=== PATIENT | male | born 1995 | race Caucasian/White ===

== ENCOUNTER 2022-08-15 00:41 | Emergency (ER) | payer SELFPAY ==
[2022-08-15 00:51] VITALS: BP 128/62; PULSE 103; RESP 16; TEMP 37.1; O2SAT 96
--- NOTE | 2022-08-15 00:57 | ED.GENADUL_ITS ---
Discharge Plan Disposition Patient Disposition: HOME Condition: Stable Discharge Details Chief Complaint: Orthopedic Clinical Impression: Acute pain of right shoulder Primary Care Provider: [facility] Provider: Camilo Bailey Home Meds and New Rx's Prescriptions: No Action No Known Home Meds Medical Decision Making 27-year-old male with a past medical history of previous right shoulder dislocation x2, presents today for suspected right shoulder dislocation. Patient states that he was walking when he slipped on some wet leaves, landed on his right shoulder, and felt his shoulder pop out. He had a friend drive him to the emergency department and then while he was walking into the ED he felt his shoulder pop and come back into a similar normal place. He denies any numbness or tingling. He did have 6 beers this evening. No other complaints at this time Exam demonstrates an anatomically in place right shoulder from physical exam findings. Patient is able to hold the shoulder out in his elbow at 90 degrees. He does have some mild pain in the proximal humerus though. Suspect that the patient did have a dislocation with spontaneous reduction. We will get x-ray for further evaluation, give Tylenol and Motrin. Monitor closely and reassess. We will place a sling on the patient. 1:57 AM There was a delay in getting x-ray secondary to critical patient volume in the emergency department. After the patient was here for an hour he stated I see that you guys are totally swamped, my arm is definitely back in place. I just want to leave, and I can come back later for imaging if needed. This was communicated to renal social worker and nursing staff. I did not have an opportunity to discuss this personally with the patient as the left promptly without waiting for further discussion. There was no ill will or anger noted at that time by nursing staff or the renal social worker for the patient. He stated he simply felt fine and wanted to go. Paperwork was not printed for him. Patient did leave on his own well.. Per renal social worker and nursing staff: The patient is able to speak clearly. There is no demonstration of any slurring of speech. There is evidence of clear decision making capacity. Patient is able to ambulate well without any difficulty. There are no signs of ataxia or stumbling motions. HPI General Date/Time Provider Initiated Documentation: 08/15/22 00:49 . HPI Narrative: 27-year-old male with a past medical history of previous right shoulder dislocation x2, presents today for suspected right shoulder dislocation. Patient states that he was walking when he slipped on some wet leaves, landed on his right shoulder, and felt his shoulder pop out. He had a friend drive him to the emergency department and then while he was walking into the ED he felt his shoulder pop and come back into a similar normal place. He denies any numbness or tingling. He did have 6 beers this evening. No other complaints at this time Related Data Home Medications Medication Instructions Recorded Confirmed Unknown [No Known Home Meds] 08/15/22 08/15/22 Allergies Allergy/AdvReac Type Severity Reaction Status Date / Time No Known Allergies Allergy Unverified 08/15/22 00:56 General Stated Complaint: Orthopedic LISA: 3 Review of Systems All systems reviewed & are unremarkable except as noted in HPI and below PFSH All Active Problems (Updated 08/15/22 @ 01:59 by Camilo Bailey DO) Acute pain of right shoulder (Acute) Social History Smoking/Tobacco Use Status: Never Smoking risk assessment performed?: Yes Alcohol Intake: current Alcohol Intake frequency: a few times a month Substance use type: does not use Do you feel safe at home: Yes Do you feel safe in your relationship?: Yes Exam Narrative Exam Narrative: 1.Const: Well-nourished, Well-developed, appearing stated age 2.Eyes: PERRL, no conjunctival injection, and symmetrical lids. 3.ENT: Atraumatic external nose and ears. Moist MM. Neck: Symmetric, trachea midline, No thyromegaly. 4.CVS: +S1/S2, No murmurs or gallops. Peripheral pulses 2+ and equal in all extremities. Brisk capillary refill in all extremities. 5.RESP: Unlabored respiratory effort. Clear to auscultation bilaterally. No wheezes rales or rhonchi 6.GI: Soft, Nontender/Nondistended, No hepatosplenomegaly. No guarding or rebound. 7.MSK: Normocephalic. Patient's right shoulder appears to be anatomically in place. I am able to abduct internally and externally rotate without significant difficulty. Patient is able to hold his arm at 90 degrees but does have mild pain at the humeral head. Exam demonstrates no numbness or tingling distally. Normal pulses. Good cap refill. Normal sensation 8.Skin: Warm, Dry. No rashes or lesions. 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 Sensation grossly intact, no focal neurologic deficits. 10.Psych: (AAO) x3. Appropriate mood and affect Course Vital Signs Vital signs: Vital Signs Temperature 37.1 C 08/15/22 00:51 Pulse 103 H 08/15/22 00:51 Respiratory Rate 16 08/15/22 00:51 Blood Pressure 128/62 08/15/22 00:51 Pulse Oximetry 96 08/15/22 00:51 Temperature 37.1 C 08/15/22 00:51 Temperature Source Tympanic 08/15/22 00:51 Pulse 103 H 08/15/22 00:51 Respiratory Rate 16 08/15/22 00:51 Respiratory Effort Non-Labored 08/15/22 00:54 Blood Pressure 128/62 08/15/22 00:51 Blood Pressure Position Sitting 08/15/22 00:51 Pulse Oximetry 96 08/15/22 00:51 Oxygen Delivery Method Room Air 08/15/22 00:51 Oxygen Flow Rate 0 08/15/22 00:51 Pain Level 8 08/15/22 00:51
== END 2022-08-15 01:52 | disposition home or self-care (01) ==
PROVIDERS: Emergency Provider Student in an Organized Health Care Education/Training Program
DX: G89.11 Acute pain due to trauma (principal); M25.511 Pain in right shoulder; W01.0XXA Fall on same level from slipping, tripping and stumbling without subsequent striking against object, initial encounter; X50.1XXA Overexertion from prolonged static or awkward postures, initial encounter; Y93.01 Activity, walking, marching and hiking
CPT/HCPCS: 99282